=== PATIENT | male | born 1975 | race Two or more races ===

== ENCOUNTER 2017-02-28 08:46 | Inpatient (IN) | payer MEDICAID ==
[~2017-02-28] VITALS: Ht 162.6 cm; Wt 72.6 kg
[2017-02-28 10:02] LABS: Urine Blood TRACE /uL (Negative); Urine Color Orange (Yellow); Urine Glucose Normal (Normal); Urine Ketone 1+ (Negative); Urine Mucus MANY (None Seen); Urine Nitrite Negative (Negative); Urine RBC 10 /hpf (0 - 3); Urine Squamous Epithelial Cell FEW /hpf (<5); Urine pH 6.5 (5.0-8.0)
[2017-02-28] MEDS ORDERED: SODIUM CHLORIDE 0.9% 1,000 ML IV ONE (10:15)
[2017-02-28 10:16] LABS: Basophils # (auto) 0 uL; Basophils % (auto) 0.1 % (0.0-2.0); Eosinophils # (auto) 0 uL; Eosinophils % (auto) 0.4 % (0.0-7.0); Hematocrit 54.5 % (41.0-53.0); Hemoglobin 18.2 g/dL (13.5-17.5); Lymphocytes # (auto) 0.7 uL; Lymphocytes % (auto) 9.6 % (10.0-50.0); Mean Corpuscular Hgb Conc. 33.4 g/dL (32.0-36.0); Mean Corpuscular Volume 86.9 fL (80.0-100.0); Mean Platelet Volume 8.8 fL (6.9-10.8); Monocytes # (auto) 1.2 uL; Monocytes % (auto) 15.4 % (0.0-12.0); Neutrophils # (auto) 5.7 uL; Neutrophils % (auto) 74.5 % (37.0-80.0); Nucleated Red Blood Cells % 0.2 %; Platelet Count (auto) 289 10^3/uL (140-450); Red Cell Distribution Width 13.7 % (11.8-14.3); White Blood Cell 7.6 10^3/uL (4.4-10.8)
[2017-02-28 10:42] LABS: Albumin 4.4 g/dL (3.4-5.0); BUN/Creatinine Ratio 23.1; Bilirubin, Total 0.8 mg/dL (0.2-1.0); Calcium 9.8 mg/dL (8.5-10.1); Potassium 3.7 mmol/L (3.5-5.1); Total Protein 8.6 g/dL (6.4-8.2)
[2017-02-28] MEDS ORDERED: cefTRIAXone 1GM/50ML D5W 50 ML IV ONE ×2 (11:00→13:45)
[2017-02-28] MEDS ORDERED: metroNIDAZOLE 500MG/100ML 100 ML IV ONE (11:00)
[2017-02-28] MEDS ORDERED: GASTROGRAFIN 120 ML SOL ONE (11:09)
[2017-02-28 11:12] LABS: Urine Bilirubin Negative (Negative)
[2017-02-28] MEDS ORDERED: NITROGLYCERIN 0.4 MG SL TAB SL PRN (13:30)
[2017-02-28] MEDS ORDERED: MORPHINE SULF INJ 2 MG/ML SYRINGE 1ML IV PRN (13:30)
[2017-02-28] MEDS ORDERED: DEXTROSE (50%) 50ML SYRG IV PRN (13:45)
[2017-02-28] MEDS ORDERED: SOD CHL 0.45% WITH 20MEQ KCL 1,000 ML IV ONE (13:45)
[2017-02-28] MEDS ORDERED: FAMOTIDINE (10MG/ML) 2ML VL IV ONE (13:45)
[2017-02-28] MEDS ORDERED: PANTOPRAZOLE 40 MG/10 ML VIAL IV ONE (13:45)
[2017-02-28] MEDS: MORPHINE SULF INJ 2 MG/ML SYRINGE 1ML IV PRN ×2 (15:48→21:28)
[2017-02-28] MEDS: ONDANSETRON HCL 4 MG/2 ML VIAL IV PRN ×2 (15:48→21:29)
[2017-02-28] MEDS: InsuLIN REG 1unit/0.01ml Soln (100units/ml) SC SCH (17:06)
[2017-02-28] MEDS: ACCU-CHEK COMFORT CURVE STRIP VI SCH (17:06)
[2017-02-28 21:10] VITALS: BP 132/78
[2017-02-28] MEDS: metroNIDAZOLE 500MG/100ML 100 ML IV SCH (21:26)
[2017-02-28 21:49] VITALS: BP 144/85
[2017-03-01] MEDS: ACCU-CHEK COMFORT CURVE STRIP VI SCH ×4 (00:23→17:06)
[2017-03-01] MEDS: MORPHINE SULF INJ 2 MG/ML SYRINGE 1ML IV PRN (02:36)
[2017-03-01] MEDS: ONDANSETRON HCL 4 MG/2 ML VIAL IV PRN (02:37)
[2017-03-01 04:49] VITALS: BP 116/72
[2017-03-01] MEDS: metroNIDAZOLE 500MG/100ML 100 ML IV SCH ×3 (05:58→21:49)
[2017-03-01] MEDS: InsuLIN REG 1unit/0.01ml Soln (100units/ml) SC SCH ×4 (05:59→17:46)
[2017-03-01 06:32] LABS: Basophils # (auto) 0 uL; Basophils % (auto) 0.3 % (0.0-2.0); Eosinophils # (auto) 0.1 uL; Eosinophils % (auto) 1.3 % (0.0-7.0); Hematocrit 42.9 % (41.0-53.0); Hemoglobin 14.6 g/dL (13.5-17.5); Lymphocytes # (auto) 1.7 uL; Mean Corpuscular Hemoglobin 29.5 pg (28.0-32.0); Mean Corpuscular Hgb Conc. 34.1 g/dL (32.0-36.0); Mean Corpuscular Volume 86.5 fL (80.0-100.0); Mean Platelet Volume 8.2 fL (6.9-10.8); Monocytes # (auto) 0.9 uL; Neutrophils # (auto) 2.8 uL; Neutrophils % (auto) 51.4 % (37.0-80.0); Nucleated Red Blood Cells % 0.1 %; Platelet Count (auto) 225 10^3/uL (140-450); Red Cell Distribution Width 13.6 % (11.8-14.3); White Blood Cell 5.4 10^3/uL (4.4-10.8)
[2017-03-01 07:16] LABS: Albumin 2.6 g/dL (3.4-5.0); BUN/Creatinine Ratio 25.8; Bilirubin, Total 0.4 mg/dL (0.2-1.0); Calcium 6.7 mg/dL (8.5-10.1); Total Protein 5.3 g/dL (6.4-8.2)
[2017-03-01 07:22] LABS: Potassium 7.7 mmol/L (3.5-5.1)
[2017-03-01 08:39] LABS: Calcium 8.6 mg/dL (8.5-10.1)
[2017-03-01 09:00] VITALS: BP 121/80
[2017-03-01] MEDS: cefTRIAXone 1GM/50ML D5W 50 ML IV SCH (09:25)
[2017-03-01] MEDS: PANTOPRAZOLE 40 MG/10 ML VIAL IV SCH (09:26)
[2017-03-01] MEDS ORDERED: FAMOTIDINE (10MG/ML) 2ML VL IV SCH (10:00)
[2017-03-01 12:22] VITALS: BP 110/66
[2017-03-01 16:51] VITALS: BP 141/96
[2017-03-01 22:00] VITALS: BP 112/72
[2017-03-01] MEDS ORDERED: TEMAZEPAM 15 MG CAP PO ONE (22:30)
[2017-03-02 05:00] VITALS: BP 137/84
[2017-03-02] MEDS: metroNIDAZOLE 500MG/100ML 100 ML IV SCH ×3 (05:40→22:14)
[2017-03-02] MEDS: ACCU-CHEK COMFORT CURVE STRIP VI SCH ×3 (05:41→12:00)
[2017-03-02] MEDS: InsuLIN REG 1unit/0.01ml Soln (100units/ml) SC SCH ×3 (05:41→12:00)
[2017-03-02 06:09] LABS: Basophils # (auto) 0 uL; Basophils % (auto) 0.2 % (0.0-2.0); Eosinophils # (auto) 0.1 uL; Eosinophils % (auto) 1.7 % (0.0-7.0); Hematocrit 45.1 % (41.0-53.0); Hemoglobin 15.2 g/dL (13.5-17.5); Lymphocytes # (auto) 1.7 uL; Lymphocytes % (auto) 20.4 % (10.0-50.0); Mean Corpuscular Hemoglobin 29.4 pg (28.0-32.0); Mean Corpuscular Hgb Conc. 33.8 g/dL (32.0-36.0); Mean Platelet Volume 8.6 fL (6.9-10.8); Monocytes # (auto) 1.2 uL; Monocytes % (auto) 14.7 % (0.0-12.0); Neutrophils # (auto) 5.1 uL; Nucleated Red Blood Cells % 0.1 %; Platelet Count (auto) 249 10^3/uL (140-450); Red Cell Distribution Width 13.7 % (11.8-14.3); White Blood Cell 8.2 10^3/uL (4.4-10.8)
[2017-03-02 06:18] LABS: Albumin 3.3 g/dL (3.4-5.0); Calcium 8.9 mg/dL (8.5-10.1); Potassium 3.8 mmol/L (3.5-5.1)
[2017-03-02 06:20] LABS: BUN/Creatinine Ratio 15.2
[2017-03-02 06:22] LABS: Bilirubin, Total 0.4 mg/dL (0.2-1.0); Total Protein 6.7 g/dL (6.4-8.2)
[2017-03-02 06:26] LABS: INR 1.02 (0.9-1.15); Prothrombin Time 11.1 sec (9.37-12.3)
[2017-03-02 09:00] VITALS: BP 129/74
[2017-03-02] MEDS: cefTRIAXone 1GM/50ML D5W 50 ML IV SCH (09:46)
[2017-03-02] MEDS: PANTOPRAZOLE 40 MG/10 ML VIAL IV SCH (09:46)
[2017-03-02 13:00] VITALS: BP 136/78
[2017-03-02 17:00] VITALS: BP 128/83
[2017-03-02 22:00] VITALS: BP 133/83
[2017-03-02] MEDS ORDERED: TEMAZEPAM 15 MG CAP PO ONE (22:45)
[2017-03-03 05:00] VITALS: BP 135/89
[2017-03-03] MEDS: metroNIDAZOLE 500MG/100ML 100 ML IV SCH ×2 (06:02→13:58)
[2017-03-03 08:00] VITALS: BP 140/78
[2017-03-03] MEDS: PANTOPRAZOLE 40 MG/10 ML VIAL IV SCH (09:36)
[2017-03-03] MEDS: cefTRIAXone 1GM/50ML D5W 50 ML IV SCH (09:36)
[2017-03-03] MEDS: MUPIROCIN 2% OINT 22GM TOP SCH ×2 (11:21→21:35)
[2017-03-03 13:00] VITALS: BP 131/85
[2017-03-03] MEDS: SOD CHL 0.9%/ KCL 20MEQ 1,000 ML IV SCH (15:30)
[2017-03-03 17:00] VITALS: BP 131/85
[2017-03-03 21:32] VITALS: BP 138/84
[2017-03-04 05:00] VITALS: BP 113/72
[2017-03-04] MEDS: SOD CHL 0.9%/ KCL 20MEQ 1,000 ML IV SCH (05:05)
[2017-03-04 08:00] VITALS: BP 134/72
[2017-03-04 08:13] VITALS: BP 134/72
[2017-03-04 08:22] LABS: Basophils # (auto) 0 uL; Basophils % (auto) 0.1 % (0.0-2.0); Eosinophils # (auto) 0.1 uL; Eosinophils % (auto) 1.1 % (0.0-7.0); Hematocrit 45.8 % (41.0-53.0); Hemoglobin 15.5 g/dL (13.5-17.5); Lymphocytes # (auto) 2.1 uL; Lymphocytes % (auto) 22.2 % (10.0-50.0); Mean Corpuscular Hgb Conc. 33.8 g/dL (32.0-36.0); Mean Platelet Volume 8.3 fL (6.9-10.8); Monocytes # (auto) 0.9 uL; Monocytes % (auto) 9.9 % (0.0-12.0); Neutrophils # (auto) 6.3 uL; Neutrophils % (auto) 66.7 % (37.0-80.0); Platelet Count (auto) 283 10^3/uL (140-450); Red Cell Distribution Width 13.4 % (11.8-14.3); White Blood Cell 9.4 10^3/uL (4.4-10.8)
[2017-03-04 08:35] LABS: Calcium 8.9 mg/dL (8.5-10.1)
[2017-03-04] MEDS ORDERED: GASTROGRAFIN 30 ML SOL ONE (08:41)
[2017-03-04] MEDS: MUPIROCIN 2% OINT 22GM TOP SCH (10:00)
[2017-03-04] MEDS: PANTOPRAZOLE 40 MG/10 ML VIAL IV SCH (10:27)
== END 2017-03-04 13:48 | disposition home or self-care (01) | DRG 247 ==
LOC: ER 08:46 → TELE 08:47 → TELE-WESTW 20:25 → WEST WING 03-03 09:01
PROVIDERS: ADMIT Internal Medicine; ATTEND Internal Medicine
PROC: 0D9670Z Drainage of Stomach with Drainage Device, Via Natural or Artificial Opening (ICD-10-PCS; principal; 2017-02-28)
DX: K56.60 Unspecified intestinal obstruction (principal); E11.22 Type 2 diabetes mellitus with diabetic chronic kidney disease; N39.0 Urinary tract infection, site not specified; K52.9 Noninfective gastroenteritis and colitis, unspecified; E86.0 Dehydration; R63.0 Anorexia; N18.2 Chronic kidney disease, stage 2 (mild); Z68.27 Body mass index [BMI] 27.0-27.9, adult
CPT/HCPCS: 36415; 71010; 74000; 74176; 74250; 80048; 80053; 81001; 82270; 82962; 83036; 85025; 85610; 87040; 87045; 87493; 87899; 96361; 96365; 96367; 96375; C9113; J0696; J1815; J2405; J3490

== ENCOUNTER 2017-11-17 18:51 | Inpatient (IN) | payer SELFPAY ==
[~2017-11-17] VITALS: Ht 162.6 cm; Wt 70.7 kg
[2017-11-17] MEDS ORDERED: SODIUM CHLORIDE 0.9% 1,000 ML IV ONE (21:30)
[2017-11-17] MEDS ORDERED: ONDANSETRON HCL 4 MG/2 ML VIAL IV ONE (21:30)
[2017-11-17] MEDS ORDERED: NALBUPHINE HCL 10 MG/1ml INJECTION IV ONE (21:30)
[2017-11-17 21:39] LABS: Basophils # (auto) 0 uL; Basophils % (auto) 0.1 % (0.0-2.0); Eosinophils # (auto) 0 uL; Hematocrit 47.7 % (41.0-53.0); Hemoglobin 16.2 g/dL (13.5-17.5); Lymphocytes # (auto) 0.4 uL; Lymphocytes % (auto) 2.6 % (10.0-50.0); Mean Corpuscular Volume 85.5 fL (80.0-100.0); Monocytes # (auto) 1.5 uL; Monocytes % (auto) 10.6 % (0.0-12.0); Neutrophils # (auto) 11.9 uL; Neutrophils % (auto) 86.7 % (37.0-80.0); Nucleated Red Blood Cells % 0.1 %; Platelet Count (auto) 231 10^3/uL (140-450); Red Blood Cells 5.58 10^6/uL (4.5-5.90); Red Cell Distribution Width 13.9 % (11.8-14.3); White Blood Cell 13.7 10^3/uL (4.4-10.8)
[2017-11-17 21:58] LABS: Albumin 4.1 g/dL (3.4-5.0); Calcium 8.6 mg/dL (8.5-10.1); Chloride 109 mmol/L (98-107); Potassium 3.5 mmol/L (3.5-5.1); Sodium 141 mmol/L (136-145)
[2017-11-17 22:01] LABS: Alanine Aminotransferase 43 U/L (16-61); Amylase 46 U/L (25-115); Anion Gap 14 (5-15); Aspartate Aminotransferase 18 U/L (15-37); BUN/Creatinine Ratio 22.4; Blood Urea Nitrogen 28 mg/dL (7-18); Carbon Dioxide 18 mmol/L (21-32); GFR African American 81 mL/min; GFR Non-African American 67 mL/min; Glucose 136 mg/dL (74-106); Lipase 102 U/L (73-393); Magnesium 1.8 mg/dL (1.6-2.6)
[2017-11-17 22:06] LABS: INR 0.94 (0.9-1.15); Partial Thromboplastin Time 28.4 sec (23.78-33.04); Prothrombin Time 10.1 sec (9.27-12.13)
[2017-11-17 22:10] LABS: Alkaline Phosphatase 57 U/L (45-117); Bilirubin, Total 0.6 mg/dL (0.2-1.0); Total Protein 7.8 g/dL (6.4-8.2)
[2017-11-17] MEDS ORDERED: cefTRIAXone 1GM/10ml IVPUSH 10 ML IV ONE (23:45)
[2017-11-17] MEDS ORDERED: metroNIDAZOLE 500MG/100ML 100 ML IV ONE (23:45)
[2017-11-18] VITALS (7 sets, daily range): BP systolic 118–144; BP diastolic 73–96
[2017-11-18] MEDS ORDERED: PANTOPRAZOLE 40 MG/10 ML VIAL IV ONE
[2017-11-18] MEDS ORDERED: KETOROLAC TROMETH 30 MG/ML 1ML VIAL IV PRN
[2017-11-18] MEDS: ZOLPIDEM TARTRATE 5 MG TAB PO PRN ×2 (01:38→22:24)
[2017-11-18] MEDS: SODIUM CHLORIDE 0.9% 1,000 ML IV SCH ×3 (03:00→20:37)
[2017-11-18] MEDS: ONDANSETRON HCL 4 MG/2 ML VIAL IV PRN ×3 (04:09→22:24)
[2017-11-18] MEDS: metroNIDAZOLE 500MG/100ML 100 ML IV SCH ×3 (05:55→22:23)
[2017-11-18 08:37] LABS: INR 0.98 (0.9-1.15); Partial Thromboplastin Time 29.9 sec (23.78-33.04); Prothrombin Time 10.5 sec (9.27-12.13)
[2017-11-18 09:11] LABS: Albumin 3.3 g/dL (3.4-5.0); BUN/Creatinine Ratio 25.3; Calcium 8.1 mg/dL (8.5-10.1); Potassium 3.5 mmol/L (3.5-5.1)
[2017-11-18 09:14] LABS: Bilirubin, Total 0.5 mg/dL (0.2-1.0); Total Protein 6.7 g/dL (6.4-8.2)
[2017-11-18] MEDS: PANTOPRAZOLE 40 MG/10 ML VIAL IV SCH (09:23)
[2017-11-18] MEDS: cefTRIAXone 1GM/10ml IVPUSH 10 ML IV SCH (09:23)
[2017-11-18 10:22] LABS: Hematocrit 44.1 % (41.0-53.0); Hemoglobin 14.8 g/dL (13.5-17.5); Mean Corpuscular Hemoglobin 28.8 pg (28.0-32.0); Mean Corpuscular Hgb Conc. 33.6 g/dL (32.0-36.0); Mean Corpuscular Volume 85.5 fL (80.0-100.0); Platelet Count (auto) 221 10^3/uL (140-450); Red Blood Cells 5.15 10^6/uL (4.5-5.90); Red Cell Distribution Width 13.8 % (11.8-14.3); White Blood Cell 4.9 10^3/uL (4.4-10.8)
[2017-11-18 10:31] LABS: Band Neutrophils % (manual) 0; Basophils % (manual) 0 (0.0-2.0); Blast Cells 0; Eosinophils % (manual) 0 (0-7); Metamyelocytes % 0; Myelocytes % 0; Promyelocytes % 0; Reactive Lymphocytes 0
[2017-11-18 10:55] LABS: Urine Bacteria NONE SEEN /hpf (None Seen); Urine Blood Negative /uL (Negative); Urine Mucus FEW (None Seen); Urine Specific Gravity 1.032 (1.001-1.035); Urine WBC 2 /hpf (0 - 3)
[2017-11-18 11:54] LABS: Lymphocytes % (manual) 25 (10.0-50.0); Monocytes % (manual) 12 (0-12)
[2017-11-18] MEDS ORDERED: GASTROGRAFIN 120 ML SOL ONE (12:48)
[2017-11-19 04:57] VITALS: BP 111/65
[2017-11-19] MEDS: SODIUM CHLORIDE 0.9% 1,000 ML IV SCH ×3 (06:05→20:38)
[2017-11-19] MEDS: metroNIDAZOLE 500MG/100ML 100 ML IV SCH ×3 (06:05→21:42)
[2017-11-19 08:00] VITALS: BP 136/82
[2017-11-19 09:00] VITALS: BP 136/82
[2017-11-19] MEDS: PANTOPRAZOLE 40 MG/10 ML VIAL IV SCH (09:48)
[2017-11-19] MEDS: cefTRIAXone 1GM/10ml IVPUSH 10 ML IV SCH (09:48)
[2017-11-19 13:00] VITALS: BP 128/73
[2017-11-19 17:00] VITALS: BP 129/78
[2017-11-19] MEDS: ZOLPIDEM TARTRATE 5 MG TAB PO PRN (21:43)
[2017-11-20 05:19] VITALS: BP 118/71
[2017-11-20] MEDS: metroNIDAZOLE 500MG/100ML 100 ML IV SCH (05:44)
[2017-11-20 07:54] VITALS: BP 127/73
[2017-11-20 08:37] VITALS: BP 127/73
[2017-11-20] MEDS: PANTOPRAZOLE 40 MG/10 ML VIAL IV SCH (08:54)
[2017-11-20] MEDS: cefTRIAXone 1GM/10ml IVPUSH 10 ML IV SCH (08:54)
[2017-11-20 10:50] VITALS: BP 122/73
== END 2017-11-20 11:40 | disposition home or self-care (01) | DRG 390 ==
LOC: ER 18:51 → OVERFLOW 18:52 → CENTRAL 11-18 00:55
PROVIDERS: ADMIT Internal Medicine; ATTEND Internal Medicine
DX: K56.7 Ileus, unspecified (principal); F12.90 Cannabis use, unspecified, uncomplicated; E86.0 Dehydration; E11.9 Type 2 diabetes mellitus without complications; D72.829 Elevated white blood cell count, unspecified; K59.00 Constipation, unspecified
CPT/HCPCS: 36415; 74176; 74250; 80053; 81001; 82150; 83605; 83690; 83735; 84484; 85007; 85025; 85027; 85610; 85730; 87040; 87493; 93005; 94761; 96361; 96365; 96375; C9113; J1885; J2405; J3490

== ENCOUNTER 2018-06-05 15:25 | Inpatient (IN) | payer SELFPAY ==
[~2018-06-05] VITALS: Ht 162.6 cm; Wt 70.7 kg
[2018-06-05 17:13] LABS: Mean Corpuscular Hgb Conc. 33.4 g/dL (32.0-36.0)
[2018-06-05 17:15] LABS: Hematocrit 55.1 % (41.0-53.0); Hemoglobin 18.4 g/dL (13.5-17.5); Platelet Count (auto) 261 10^3/uL (140-450); Red Blood Cells 6.33 10^6/uL (4.5-5.90); Red Cell Distribution Width 14.2 % (11.8-14.3); White Blood Cell 18.3 10^3/uL (4.4-10.8)
[2018-06-05 17:32] LABS: Basophils % (manual) 0 (0.0-2.0); Blast Cells 0; Eosinophils % (manual) 0 (0-7); Metamyelocytes % 0; Promyelocytes % 0
[2018-06-05 17:42] LABS: Albumin 4.7 g/dL (3.4-5.0); Calcium 9.6 mg/dL (8.5-10.1)
[2018-06-05 17:46] LABS: BUN/Creatinine Ratio 22.4; Bilirubin, Total 0.6 mg/dL (0.2-1.0); Total Protein 8.8 g/dL (6.4-8.2)
[2018-06-05 18:00] LABS: Band Neutrophils % (manual) 18; Lymphocytes % (manual) 4 (10.0-50.0); Monocytes % (manual) 8 (0-12); Myelocytes % 1; Reactive Lymphocytes 1
[2018-06-05] MEDS ORDERED: SODIUM CHLORIDE 0.9% 1,000 ML IV ONE ×2 (19:41)
[2018-06-05] MEDS ORDERED: metroNIDAZOLE 500MG/100ML 100 ML IV ONE (19:45)
[2018-06-05] MEDS ORDERED: PIPERACILLIN-TAZOB 3.375GM 100 ML IV ONE (19:45)
[2018-06-05] MEDS: SODIUM CHLORIDE 0.9% 1,000 ML IV SCH (20:24)
[2018-06-05] MEDS ORDERED: ACETAMINOPHEN 325 MG TAB PO PRN (20:30)
[2018-06-05] MEDS ORDERED: HYDROcodone-ACET 5/325MG TAB PO PRN (20:30)
[2018-06-05] MEDS ORDERED: HYDROmorphone HCL 2 MG/ML VL IV ONE (22:00)
[2018-06-05] MEDS ORDERED: ONDANSETRON HCL 4 MG/2 ML VIAL IV ONE (22:00)
[2018-06-05] MEDS: metroNIDAZOLE 500MG/100ML 100 ML IV SCH (22:00)
[2018-06-06] MEDS: TEMAZEPAM 15 MG CAP PO PRN ×2 (00:20→21:30)
[2018-06-06 05:00] VITALS: BP 120/76
[2018-06-06 06:25] LABS: Basophils # (auto) 0 uL; Basophils % (auto) 0.1 % (0.0-2.0); Eosinophils # (auto) 0 uL; Eosinophils % (auto) 0.1 % (0.0-7.0); Hematocrit 47.5 % (41.0-53.0); Hemoglobin 15.9 g/dL (13.5-17.5); Lymphocytes # (auto) 1.1 uL; Lymphocytes % (auto) 13.1 % (10.0-50.0); Mean Corpuscular Hemoglobin 28.9 pg (28.0-32.0); Mean Corpuscular Hgb Conc. 33.4 g/dL (32.0-36.0); Mean Corpuscular Volume 86.5 fL (80.0-100.0); Monocytes # (auto) 1.4 uL; Monocytes % (auto) 17.3 % (0.0-12.0); Neutrophils # (auto) 5.7 uL; Neutrophils % (auto) 69.4 % (37.0-80.0); Nucleated Red Blood Cells % 0.1 %; Platelet Count (auto) 207 10^3/uL (140-450); White Blood Cell 8.1 10^3/uL (4.4-10.8)
[2018-06-06 06:36] LABS: Albumin 3.7 g/dL (3.4-5.0); BUN/Creatinine Ratio 23.5; Calcium 8.5 mg/dL (8.5-10.1); Potassium 3.7 mmol/L (3.5-5.1)
[2018-06-06 06:39] LABS: Bilirubin, Total 0.5 mg/dL (0.2-1.0); Total Protein 6.8 g/dL (6.4-8.2)
[2018-06-06] MEDS: metroNIDAZOLE 500MG/100ML 100 ML IV SCH ×3 (07:07→22:32)
[2018-06-06] MEDS: PANTOPRAZOLE 40 MG/10 ML VIAL IV SCH (07:07)
[2018-06-06 09:00] VITALS: BP 117/69
[2018-06-06] MEDS: cefTRIAXone 1GM/50ML D5W 50 ML IV SCH (09:21)
[2018-06-06] MEDS: ONDANSETRON HCL 4 MG/2 ML VIAL IV PRN ×2 (12:33→19:37)
[2018-06-06] MEDS: MORPHINE SULFATE 10 MG/ML INJ 1ML SDV IV PRN ×2 (12:50→19:37)
[2018-06-06 13:00] VITALS: BP 115/72
[2018-06-06] MEDS: SODIUM CHLORIDE 0.9% 1,000 ML IV SCH (14:09)
[2018-06-06 17:00] VITALS: BP 110/77
--- NOTE | 2018-06-06 19:15 | NUR ---
OPEN SHIFT NOTE PATIENT ALERT AND ORIENTED X4. ON ROOM AIR. POC DISCUSSED WITH PATIENT AND AND QUESTIONS ANSWERED. PATIENT STATES 7/10 OF PAIN AT THIS TIME. BED IS LOCKED IN LOWEST POSITION WITH SIDE RAILS UP X2. CALL LIGHT IS WITHIN REACH. WILL CONTINUE TO ROUND Q1HR AND PRN.
[2018-06-06 22:00] VITALS: BP 121/65
[2018-06-07] MEDS: MORPHINE SULFATE 10 MG/ML INJ 1ML SDV IV PRN ×2 (01:07→17:26)
[2018-06-07] MEDS: ONDANSETRON HCL 4 MG/2 ML VIAL IV PRN ×2 (01:07→17:26)
[2018-06-07 05:00] VITALS: BP 107/56
[2018-06-07] MEDS: metroNIDAZOLE 500MG/100ML 100 ML IV SCH ×3 (06:22→21:25)
[2018-06-07] MEDS: PANTOPRAZOLE 40 MG/10 ML VIAL IV SCH (06:23)
[2018-06-07 07:08] LABS: Calcium 7.9 mg/dL (8.5-10.1); Potassium 3.4 mmol/L (3.5-5.1)
[2018-06-07 07:09] LABS: BUN/Creatinine Ratio 14.6
[2018-06-07 08:00] VITALS: BP 110/63
[2018-06-07 09:00] VITALS: BP 110/63
--- NOTE | 2018-06-07 09:59 | NUR ---
CALL TO MICRO CALLED TO VERIFY THE STOOL SAMPLE ORDER, LAB VERIFIED THE STOOL ORDER INCLUDES TEST FOR C-DIFF
[2018-06-07] MEDS: cefTRIAXone 1GM/50ML D5W 50 ML IV SCH (10:05)
[2018-06-07] MEDS: SODIUM CHLORIDE 0.9% 1,000 ML IV SCH ×2 (10:05→22:39)
--- NOTE | 2018-06-07 10:14 | NUR ---
VISITORS AT BEDSIDE
[2018-06-07] MEDS ORDERED: POTASSIUM CHL 20 Meq TABLET PO ONE (11:15)
--- NOTE | 2018-06-07 12:04 | NUR ---
MD ROUNDS DR SORIA AT BEDSIDE TO DISCUSS POC WITH PT, PER MD PT MAY BE D/C'd UPON NEGATIVE C.DIFF RESULT, STILL PENDING WITH MICRO
[2018-06-07 13:00] VITALS: BP 122/67
[2018-06-07 17:00] VITALS: BP 128/79
--- NOTE | 2018-06-07 17:00 | NUR ---
Re: D/C Per MD, patient cannot be D/C'd due to a pending C-Diff sample, per Micro lab stool sample was sent yesterday. Patient is otherwise cleared to D/C, majority of d/c charting has been completed in anticipation of d/c
--- NOTE | 2018-06-07 19:05 | NUR ---
Opening Note Received report from day shift RN. Patient is awake, alert and oriented x4. No signs or symptoms of distress or shortness of breath at this time. Patient denies pain at this time. Reviewed plan of care, patient verbalized understanding. at bedside. Bed in low and locked position, call light within reach. Will continue to monitor Q1 hour and PRN.
[2018-06-07 22:00] VITALS: BP 124/61
[2018-06-07] MEDS: TEMAZEPAM 15 MG CAP PO PRN (22:16)
[2018-06-08] MEDS: ONDANSETRON HCL 4 MG/2 ML VIAL IV PRN (04:26)
[2018-06-08] MEDS: MORPHINE SULFATE 10 MG/ML INJ 1ML SDV IV PRN ×2 (04:26→05:18)
[2018-06-08 05:00] VITALS: BP 115/67
[2018-06-08] MEDS: metroNIDAZOLE 500MG/100ML 100 ML IV SCH (06:30)
[2018-06-08] MEDS: PANTOPRAZOLE 40 MG/10 ML VIAL IV SCH (06:30)
--- NOTE | 2018-06-08 07:10 | NUR ---
Closing Note Report given to day shift RN. Patient is resting in bed with eyes closed.No signs or symptoms of distress noted at this time
--- NOTE | 2018-06-08 07:20 | NUR ---
Opening Shift Note Assumed care of patient, patient alert and oriented x4. No S/S of distress/SOB or pain. Instructed on POC and to call for assistance PRN, will continue to monitor for changes Q1hr and PRN.
[2018-06-08 08:00] VITALS: BP 108/62
[2018-06-08 09:00] VITALS: BP 108/62
[2018-06-08] MEDS: cefTRIAXone 1GM/50ML D5W 50 ML IV SCH (09:50)
--- NOTE | 2018-06-08 11:00 | NUR ---
Dr. Alvarado at bedside.
[2018-06-08] MEDS: VANCOMYCIN HCL 125MG/5ML ORAL SOL PO SCH ×3 (12:00→23:40)
--- NOTE | 2018-06-08 12:00 | NUR ---
Dr. Alvarado paged regarding Stool sample final results, awaiting call.
[2018-06-08 13:00] VITALS: BP 118/73
--- NOTE | 2018-06-08 14:45 | NUR ---
IV removal Patient c/o pain at IV site,rates it a 4/10, slight swelling present. No redness present. IV DC'd with clean sterile technique, catheter fully intact. Pressure dressing applied to site. Patient tolerated well. Addendum: 06/08/18 at 1725 by Claudia Cortes RN 20 gauge IV placed in Right hand, patient tolerated well.
[2018-06-08] MEDS: SODIUM CHLORIDE 0.9% 1,000 ML IV SCH (15:04)
[2018-06-08 17:06] VITALS: BP 125/74
--- NOTE | 2018-06-08 18:55 | NUR ---
Patient sitting up having dinner, no c/o pain, no s/s of distress/sob noted or stated. Family member at bed side. Will endorse care to NOC RN
--- NOTE | 2018-06-08 19:25 | NUR ---
Opening Shift Note Assumed care of patient, patient alert and oriented x4. No S/S of distress/SOB or pain. Patient on C. Difficile precautions at this time. Bed in lowest locked position, side rails up x2, call light within reach. Instructed on POC and to call for assistance PRN, will continue to monitor for changes Q1hr and PRN.
[2018-06-08 21:44] VITALS: BP 112/70
[2018-06-08] MEDS: TEMAZEPAM 15 MG CAP PO PRN (22:06)
--- NOTE | 2018-06-09 04:20 | NUR ---
Bowel Movement Patient reporting 7/10 abdominal pain after bowel movement. Patient reports that stool is now "green, but soft and formed, not liquid." Will medicate for pain and prophylactically for nausea as ordered. Will continue to monitor.
[2018-06-09] MEDS: MORPHINE SULFATE 10 MG/ML INJ 1ML SDV IV PRN (04:23)
[2018-06-09] MEDS: ONDANSETRON HCL 4 MG/2 ML VIAL IV PRN (04:23)
[2018-06-09 05:00] VITALS: BP 123/84
[2018-06-09] MEDS: VANCOMYCIN HCL 125MG/5ML ORAL SOL PO SCH ×2 (05:46→11:42)
[2018-06-09 07:03] LABS: Potassium 3.4 mmol/L (3.5-5.1)
[2018-06-09 07:07] LABS: BUN/Creatinine Ratio 18.4; Calcium 8.3 mg/dL (8.5-10.1)
--- NOTE | 2018-06-09 07:30 | NUR ---
Closing Note Patient lying in bed, awake and alert. No s/s of distress. Care endorsed to kerry Flaherty RN.
[2018-06-09 08:46] VITALS: BP 107/80
[2018-06-09 13:03] VITALS: BP 125/84
[2018-06-09] MEDS ORDERED: VANC125PO PO (13:13)
[2018-06-09] MEDS ORDERED: POTASSIUM CHL 20 Meq TABLET PO ONE (13:30)
[2018-06-09 13:31] VITALS: BP 120/90
--- NOTE | 2018-06-09 13:35 | NUR ---
Discharge order noted. No prescription found in chart. Page placed to Dr. Alvarado.
--- NOTE | 2018-06-09 14:21 | NUR ---
No return call from Dr. Alvarado. Second page sent.
--- NOTE | 2018-06-09 15:00 | NUR ---
Prescription for Vancomycin received from Dr. Alvarado.
--- NOTE | 2018-06-09 16:37 | NUR ---
Received call from [facility] that Vanco 125 mg not available. Pharmacist requesting dosage be changed or new medication ordered. Had also received call from patient's that they are not able to find the vanco at any pharmacy. Page placed to Dr. Alvarado.
--- NOTE | 2018-06-09 16:47 | NUR ---
Return call from Dr. Alvarado. Order received for Vancomycin 250 mg PO QID for 2 weeks. Prescription called in to [facility] - [phone]. Spoke with pharmacist Ed.
== END 2018-06-09 15:28 | disposition home or self-care (01) | DRG 371 ==
LOC: ER 15:34 → OVERFLOW 20:26 → EAST 22:25
PROVIDERS: ADMIT Nurse Practitioner; ATTEND Internal Medicine
DX: A04.72 Enterocolitis due to Clostridium difficile, not specified as recurrent (principal); N17.0 Acute kidney failure with tubular necrosis; E86.0 Dehydration; F12.90 Cannabis use, unspecified, uncomplicated; Z83.3 Family history of diabetes mellitus
CPT/HCPCS: 36415; 71045; 74176; 80048; 80053; 83605; 85007; 85025; 85027; 85048; 87040; 87045; 87493; 87899; 96365; 96367; 96375; C9113; G0378; J0696; J2405; J2543; J3490

== ENCOUNTER 2018-09-19 20:19 | Inpatient (IN) | payer SELFPAY ==
[~2018-09-19] VITALS: Ht 162.6 cm; Wt 71.0 kg
[~2018-09-19 20:19] MED LIST: VANC125PO PO
[2018-09-19 22:19] LABS: Basophils # (auto) 0 uL; Eosinophils # (auto) 0 uL; Lymphocytes # (auto) 0.4 uL; Lymphocytes % (auto) 2.3 % (10.0-50.0); Neutrophils # (auto) 14.3 uL
[2018-09-19 22:21] LABS: Basophils % (auto) 0.2 % (0.0-2.0); Hematocrit 52.6 % (41.0-53.0); Hemoglobin 17.6 g/dL (13.5-17.5); Mean Corpuscular Hemoglobin 29.1 pg (28.0-32.0); Mean Corpuscular Hgb Conc. 33.4 g/dL (32.0-36.0); Mean Corpuscular Volume 87.2 fL (80.0-100.0); Monocytes % (auto) 6.3 % (0.0-12.0); Neutrophils % (auto) 91.2 % (37.0-80.0); Platelet Count (auto) 248 10^3/uL (140-450); Red Blood Cells 6.04 10^6/uL (4.5-5.90); Red Cell Distribution Width 14.1 % (11.8-14.3); White Blood Cell 15.7 10^3/uL (4.4-10.8)
[2018-09-19 22:31] LABS: Potassium 4.6 mmol/L (3.5-5.1)
[2018-09-19 22:35] LABS: Albumin 5.1 g/dL (3.4-5.0); Calcium 10.1 mg/dL (8.5-10.1); Magnesium 2.1 mg/dL (1.6-2.6)
[2018-09-19 22:40] LABS: BUN/Creatinine Ratio 19.2; Bilirubin, Total 0.4 mg/dL (0.2-1.0); Total Protein 8.8 g/dL (6.4-8.2)
[2018-09-20] MEDS ORDERED: cefTRIAXone 1GM/50ML D5W 50 ML IV ONE (06:15)
[2018-09-20] MEDS ORDERED: ONDANSETRON HCL 4 MG/2 ML VIAL IV ONE (06:15)
[2018-09-20] MEDS ORDERED: HYDROmorphone HCL 2 MG/ML VL IV ONE (06:15)
[2018-09-20] MEDS ORDERED: SODIUM CHLORIDE 0.9% 500 ML IV ONE (07:15)
[2018-09-20] MEDS ORDERED: metroNIDAZOLE 500MG/100ML 100 ML IV ONE (07:45)
[2018-09-20] MEDS ORDERED: HYDROcodone-ACET 5/325MG TAB PO PRN (07:45)
[2018-09-20] MEDS ORDERED: ACETAMINOPHEN 325 MG TAB PO PRN (07:45)
[2018-09-20] MEDS: SODIUM CHLORIDE 0.9% 1,000 ML IV SCH ×2 (08:00→21:05)
[2018-09-20 08:42] LABS: Urine Bacteria NONE SEEN /hpf (None Seen); Urine Blood Negative /uL (Negative); Urine Mucus FEW (None Seen); Urine Specific Gravity 1.034 (1.001-1.035); Urine WBC 1 /hpf (0 - 3)
[2018-09-20] MEDS: MORPHINE SULFATE 4 MG/ML SYR/VIAL IV PRN ×3 (09:56→22:07)
[2018-09-20] MEDS: PANTOPRAZOLE 40 MG/10 ML VIAL IV SCH (09:56)
[2018-09-20] MEDS: metroNIDAZOLE 500MG/100ML 100 ML IV SCH ×2 (14:18→22:07)
--- NOTE | 2018-09-20 17:10 | NUR ---
MS admit from ER VALORIE DIGGS admitted to tele/MS after SBAR received. Patient oriented to Valeria Mcgill, primary RN, unit, room, bed, and unit policies regarding patient care and visiting hours. Patient weighed by bedscale and encouraged to call if they need something. All questions and concerns addressed, patient verbalized understanding. Note:
[2018-09-20 17:31] VITALS: BP 119/79
[2018-09-20 18:10] VITALS: BP 119/79
--- NOTE | 2018-09-20 19:30 | NUR ---
Opening Shift Note Assumed care of patient, awake and alert x4. Family member noted at bedside. Patient denies pain at this time. Instructed on plan of care and to call for assistance as needed. Bed is locked in lowest position, side rails x 2 are up, and call light is within reach.
[2018-09-20 22:00] VITALS: BP 107/57
[2018-09-21] MEDS: TEMAZEPAM 15 MG CAP PO PRN ×2 (00:59→21:37)
[2018-09-21 05:00] VITALS: BP 115/62
[2018-09-21] MEDS: metroNIDAZOLE 500MG/100ML 100 ML IV SCH (05:03)
[2018-09-21 05:48] LABS: Basophils # (auto) 0 uL; Basophils % (auto) 0.3 % (0.0-2.0); Eosinophils # (auto) 0.1 uL; Eosinophils % (auto) 1.4 % (0.0-7.0); Hematocrit 41.3 % (41.0-53.0); Lymphocytes # (auto) 1.6 uL; Lymphocytes % (auto) 27.1 % (10.0-50.0); Mean Corpuscular Hemoglobin 29.4 pg (28.0-32.0); Mean Corpuscular Hgb Conc. 33.8 g/dL (32.0-36.0); Monocytes # (auto) 0.8 uL; Monocytes % (auto) 12.9 % (0.0-12.0); Neutrophils # (auto) 3.5 uL; Neutrophils % (auto) 58.3 % (37.0-80.0); Nucleated Red Blood Cells % 0.1 %; Platelet Count (auto) 182 10^3/uL (140-450); Red Blood Cells 4.75 10^6/uL (4.5-5.90); Red Cell Distribution Width 13.9 % (11.8-14.3)
[2018-09-21 06:07] LABS: Potassium 3.6 mmol/L (3.5-5.1)
[2018-09-21 06:10] LABS: Calcium 8.3 mg/dL (8.5-10.1)
[2018-09-21 06:17] LABS: BUN/Creatinine Ratio 18.4
[2018-09-21 08:00] VITALS: BP 122/69
[2018-09-21 09:00] VITALS: BP 122/69
[2018-09-21] MEDS: PANTOPRAZOLE 40 MG/10 ML VIAL IV SCH (10:07)
[2018-09-21] MEDS: SODIUM CHLORIDE 0.9% 1,000 ML IV SCH ×2 (10:07→23:45)
[2018-09-21 13:00] VITALS: BP 118/67
[2018-09-21] MEDS ORDERED: VANCOMYCIN HCL 125MG/5ML ORAL SOL PO ONE (13:00)
[2018-09-21] MEDS ORDERED: MORPHINE SULF INJ 2 MG/ML SYRINGE 1ML IV PRN (13:00)
[2018-09-21 17:13] VITALS: BP 110/60
[2018-09-21] MEDS: VANCOMYCIN HCL 125MG/5ML ORAL SOL PO SCH ×2 (17:54→21:37)
--- NOTE | 2018-09-21 19:35 | NUR ---
Opening Shift Note Assumed care of patient, awake and alert x4. Family member noted at the bedside. Patient denies pain/nausea at this time. Instructed on plan of care and to call for assistance as needed. Bed is locked in lowest position, side rails x 2 are up, and call light is within reach.
[2018-09-21 21:00] VITALS: BP 119/71
[2018-09-22 05:00] VITALS: BP 101/66
[2018-09-22] MEDS: VANCOMYCIN HCL 125MG/5ML ORAL SOL PO SCH ×2 (05:34→12:00)
[2018-09-22] MEDS: SODIUM CHLORIDE 0.9% 1,000 ML IV SCH (05:35)
[2018-09-22 06:08] LABS: Basophils # (auto) 0 uL; Basophils % (auto) 0.4 % (0.0-2.0); Eosinophils # (auto) 0.2 uL; Eosinophils % (auto) 2.6 % (0.0-7.0); Hematocrit 42.7 % (41.0-53.0); Hemoglobin 14.4 g/dL (13.5-17.5); Lymphocytes # (auto) 1.5 uL; Lymphocytes % (auto) 20.9 % (10.0-50.0); Mean Corpuscular Hemoglobin 29.3 pg (28.0-32.0); Mean Corpuscular Hgb Conc. 33.7 g/dL (32.0-36.0); Mean Corpuscular Volume 86.8 fL (80.0-100.0); Monocytes # (auto) 0.9 uL; Monocytes % (auto) 11.9 % (0.0-12.0); Neutrophils # (auto) 4.6 uL; Neutrophils % (auto) 64.2 % (37.0-80.0); Nucleated Red Blood Cells % 0.1 %; Platelet Count (auto) 202 10^3/uL (140-450); Red Blood Cells 4.92 10^6/uL (4.5-5.90); Red Cell Distribution Width 13.6 % (11.8-14.3); White Blood Cell 7.2 10^3/uL (4.4-10.8)
[2018-09-22 06:12] LABS: Calcium 8.6 mg/dL (8.5-10.1); Potassium 3.6 mmol/L (3.5-5.1)
[2018-09-22 06:15] LABS: BUN/Creatinine Ratio 18.3
--- NOTE | 2018-09-22 08:00 | NUR ---
Opening Shift Note Assumed care of patient, awake and alert. No S/S of distress/SOB or pain. Instructed on POC and to call for assist PRN, will continue to monitor for changes Q1hr and PRN.
[2018-09-22] MEDS: PANTOPRAZOLE 40 MG/10 ML VIAL IV SCH (09:06)
[2018-09-22 09:45] VITALS: BP 123/68
--- NOTE | 2018-09-22 13:57 | NUR ---
DISCHARGE PATIENT DISCHARGE DONE. ALL INSTRUCTIONS EXPLAINED TO PATIENT AND SPOUSE. ALL QUESTIONS ANSWERED. IV AND ID BANDS REMOVED. ALL BELONGINGS WENT WITH PATIENT. LEFT IN PERSONAL VEHICLE WITH SPOUSE.
== END 2018-09-22 14:10 | disposition home or self-care (01) | DRG 392 ==
LOC: ER 20:23 → OVERFLOW 09-20 07:33 → WEST WING 09-20 17:11
PROVIDERS: ADMIT Nurse Practitioner; ATTEND Internal Medicine
DX: K52.9 Noninfective gastroenteritis and colitis, unspecified (principal); F12.90 Cannabis use, unspecified, uncomplicated; K31.84 Gastroparesis; Z83.3 Family history of diabetes mellitus; Z80.3 Family history of malignant neoplasm of breast
CPT/HCPCS: 36415; 74176; 80048; 80053; 81001; 82150; 83690; 83735; 85025; 87045; 87493; 87899; 94761; 96361; 96365; 96375; C9113; G0378; J0696; J2405; J3490

== ENCOUNTER 2020-06-15 22:25 | Emergency (ER) | payer SELFPAY ==
[~2020-06-15] VITALS: Ht 165.1 cm; Wt 74.8 kg
[2020-06-16 00:17] LABS: Basophils # (auto) 0 10 ^3/uL (0-0.2); Basophils % (auto) 0.1 % (0.0-2.0); Eosinophils # (auto) 0 10 ^3/uL (0-0.8); Hematocrit 45.8 % (41.0-53.0); Hemoglobin 15.6 g/dL (13.5-17.5); Lymphocytes # (auto) 1.3 10 ^3/uL (0.4-5.4); Lymphocytes % (auto) 11.5 % (10.0-50.0); Mean Corpuscular Hemoglobin 29.6 pg (28.0-32.0); Mean Corpuscular Hgb Conc. 34.2 g/dL (32.0-36.0); Mean Corpuscular Volume 86.6 fL (80.0-100.0); Monocytes # (auto) 0.9 10 ^3/uL (0-1.3); Monocytes % (auto) 7.8 % (0.0-12.0); Neutrophils # (auto) 9.1 10 ^3/uL (1.6-8.6); Neutrophils % (auto) 80.6 % (37.0-80.0); Platelet Count (auto) 255 10^3/uL (140-450); Red Blood Cells 5.28 10^6/uL (4.5-5.90); Red Cell Distribution Width 13.7 % (11.8-14.3); White Blood Cell 11.3 10^3/uL (4.4-10.8)
[2020-06-16 01:02] LABS: Albumin 4.5 g/dL (3.4-5.0); Calcium 9.4 mg/dL (8.5-10.1)
[2020-06-16 01:17] LABS: BUN/Creatinine Ratio 20.2; Bilirubin, Total 0.6 mg/dL (0.2-1.0); Potassium 3.6 mmol/L (3.5-5.1); Total Protein 8.1 g/dL (6.4-8.2)
[2020-06-16 01:21] LABS: Urine Bacteria NONE SEEN /hpf (None Seen); Urine Blood Negative /uL (Negative); Urine Mucus MODERATE (None Seen); Urine Specific Gravity 1.041 (1.001-1.035); Urine WBC 1 /hpf (0 - 3)
[2020-06-16 01:45] VITALS: BP 138/79
[2020-06-16] MEDS ORDERED: IBUP800T24 PO (15:33)
[2020-06-16] MEDS ORDERED: FAMO20TA10 PO (15:33)
== END 2020-06-16 01:54 | disposition home or self-care (01) ==
LOC: ER 22:26
DX: K56.600 Partial intestinal obstruction, unspecified as to cause (principal)
CPT/HCPCS: 36415; 74176; 80053; 81001; 82150; 83605; 83690; 85025; 87040; 93005

== ENCOUNTER 2020-06-16 13:41 | Inpatient (IN) | payer SELFPAY ==
[~2020-06-16] VITALS: Ht 165.1 cm; Wt 68.9 kg
[2020-06-16 14:25] LABS: Basophils # (auto) 0 10 ^3/uL (0-0.2); Basophils % (auto) 0.2 % (0.0-2.0); Eosinophils # (auto) 0 10 ^3/uL (0-0.8); Hematocrit 48.8 % (41.0-53.0); Hemoglobin 17.2 g/dL (13.5-17.5); Lymphocytes # (auto) 0.9 10 ^3/uL (0.4-5.4); Lymphocytes % (auto) 5.7 % (10.0-50.0); Mean Corpuscular Hemoglobin 30.2 pg (28.0-32.0); Mean Corpuscular Hgb Conc. 35.2 g/dL (32.0-36.0); Mean Corpuscular Volume 85.8 fL (80.0-100.0); Monocytes # (auto) 1.4 10 ^3/uL (0-1.3); Monocytes % (auto) 9.3 % (0.0-12.0); Neutrophils % (auto) 84.8 % (37.0-80.0); Nucleated Red Blood Cells % 0.1 %; Platelet Count (auto) 290 10^3/uL (140-450); Red Cell Distribution Width 13.5 % (11.8-14.3); White Blood Cell 15.3 10^3/uL (4.4-10.8)
[2020-06-16 14:43] LABS: Albumin 4.7 g/dL (3.4-5.0); Calcium 9.7 mg/dL (8.5-10.1); Potassium 3.4 mmol/L (3.5-5.1)
[2020-06-16 14:48] LABS: BUN/Creatinine Ratio 21.4; Bilirubin, Total 0.7 mg/dL (0.2-1.0); Total Protein 8.6 g/dL (6.4-8.2)
[2020-06-16] MEDS ORDERED: SODIUM CHLORIDE 0.9% 1,000 ML IV ONE ×2 (15:00)
[2020-06-16] MEDS ORDERED: PIPERACILLIN-TAZOB 3.375GM 100 ML IV ONE (15:00)
[2020-06-16] MEDS ORDERED: metroNIDAZOLE 500MG/100ML 100 ML IV ONE (15:00)
[2020-06-16] MEDS ORDERED: LACTATED RINGER'S 1,000 ML IV ONE (15:15)
[2020-06-16] MEDS ORDERED: MORPHINE SULF INJ 2 MG/ML SYRINGE 1ML IV PRN ×2 (15:15→16:30)
[2020-06-16] MEDS ORDERED: NITROGLYCERIN 0.4 MG SL TAB SL PRN ×2 (15:15→16:30)
[2020-06-16] MEDS ORDERED: IBUP800T24 PO (15:33)
[2020-06-16] MEDS ORDERED: FAMO20TA10 PO (15:33)
[2020-06-16] MEDS ORDERED: HYDROmorphone HCL 2 MG/ML VL IV ONE (16:15)
[2020-06-16] MEDS ORDERED: GASTROGRAFIN 120 ML SOL ONE (16:19)
[2020-06-16] MEDS ORDERED: SUCRALFATE 1 GM/10 ML ORAL SUSP PO ONE (16:30)
[2020-06-16] MEDS ORDERED: ALUM & MAG HYDROX-SIMETH LIQ(MAALOX) 30 ML PO PRN (16:30)
[2020-06-16] MEDS ORDERED: LORazepam 0.5 MG TAB PO PRN (16:30)
[2020-06-16] MEDS ORDERED: ACETAMINOPHEN 325 MG TAB PO PRN (16:30)
[2020-06-16] MEDS ORDERED: PANTOPRAZOLE 40 MG/10 ML VIAL INJ IV ONE (16:30)
[2020-06-16] MEDS ORDERED: DOCUSATE SOD 100 MG CAP PO PRN (16:30)
[2020-06-16 16:49] LABS: Cholesterol 182 mg/dL (< 200)
[2020-06-16 16:53] LABS: HDL Cholesterol 49 mg/dL (40-59); LDL Cholesterol 115 mg/dL (< 100); Triglycerides 121 mg/dL (< 150)
[2020-06-16] MEDS: ONDANSETRON HCL 4 MG/2 ML VIAL IV PRN (18:16)
[2020-06-16] MEDS: SOD CHL 0.9%/ KCL 20MEQ 1,000 ML IV SCH (18:24)
[2020-06-16] MEDS: ENOXAPARIN SOD 40 MG/0.4 ML SYRINGE SC SCH (18:25)
[2020-06-16] MEDS: SUCRALFATE 1 GM/10 ML ORAL SUSP PO SCH ×2 (18:25→22:00)
[2020-06-16] MEDS: metroNIDAZOLE 500MG/100ML 100 ML IV SCH (22:00)
[2020-06-16] MEDS: MORPHINE SULF INJ 2 MG/ML SYRINGE 1ML IV PRN (22:52)
[2020-06-17] MEDS: SOD CHL 0.9%/ KCL 20MEQ 1,000 ML IV SCH ×3 (05:50→23:00)
[2020-06-17] MEDS: metroNIDAZOLE 500MG/100ML 100 ML IV SCH ×3 (06:00→21:43)
[2020-06-17] MEDS: SUCRALFATE 1 GM/10 ML ORAL SUSP PO SCH ×4 (06:51→21:44)
[2020-06-17] MEDS: MORPHINE SULF INJ 2 MG/ML SYRINGE 1ML IV PRN ×2 (06:53→22:41)
[2020-06-17 07:09] LABS: Basophils # (auto) 0 10 ^3/uL (0-0.2); Basophils % (auto) 0.2 % (0.0-2.0); Eosinophils # (auto) 0 10 ^3/uL (0-0.8); Eosinophils % (auto) 0.2 % (0.0-7.0); Hematocrit 43.7 % (41.0-53.0); Hemoglobin 15.1 g/dL (13.5-17.5); Lymphocytes # (auto) 1.3 10 ^3/uL (0.4-5.4); Mean Corpuscular Hemoglobin 29.8 pg (28.0-32.0); Mean Corpuscular Hgb Conc. 34.4 g/dL (32.0-36.0); Mean Corpuscular Volume 86.5 fL (80.0-100.0); Monocytes # (auto) 1.1 10 ^3/uL (0-1.3); Monocytes % (auto) 14.3 % (0.0-12.0); Neutrophils # (auto) 5.2 10 ^3/uL (1.6-8.6); Neutrophils % (auto) 68.3 % (37.0-80.0); Nucleated Red Blood Cells % 0.1 %; Platelet Count (auto) 235 10^3/uL (140-450); Red Blood Cells 5.06 10^6/uL (4.5-5.90); Red Cell Distribution Width 13.5 % (11.8-14.3); White Blood Cell 7.6 10^3/uL (4.4-10.8)
[2020-06-17 07:19] LABS: INR 0.99 (0.9-1.15); Partial Thromboplastin Time 30.4 sec (23.0-31.2)
[2020-06-17] MEDS: ONDANSETRON HCL 4 MG/2 ML VIAL IV PRN ×2 (07:36→22:48)
[2020-06-17 08:01] LABS: Potassium 3.7 mmol/L (3.5-5.1)
[2020-06-17 08:11] LABS: Albumin 4.1 g/dL (3.4-5.0); Bilirubin, Total 0.7 mg/dL (0.2-1.0); Calcium 9.2 mg/dL (8.5-10.1); Magnesium 2.2 mg/dL (1.6-2.6); Phosphorus 2.7 mg/dL (2.5-4.90); Total Protein 7.5 g/dL (6.4-8.2)
[2020-06-17] MEDS: PANTOPRAZOLE 40 MG/10 ML VIAL INJ IV SCH (09:53)
[2020-06-17] MEDS: ENOXAPARIN SOD 40 MG/0.4 ML SYRINGE SC SCH (09:56)
[2020-06-17] MEDS: cefTRIAXone 1GM/50ML D5W 50 ML IV SCH (09:56)
[2020-06-17 22:35] VITALS: BP 138/74
[2020-06-18 05:00] VITALS: BP 123/67
[2020-06-18] MEDS: metroNIDAZOLE 500MG/100ML 100 ML IV SCH ×2 (06:19→14:08)
[2020-06-18] MEDS: SUCRALFATE 1 GM/10 ML ORAL SUSP PO SCH ×2 (06:20→11:28)
[2020-06-18] MEDS: ONDANSETRON HCL 4 MG/2 ML VIAL IV PRN (06:28)
[2020-06-18] MEDS: MORPHINE SULF INJ 2 MG/ML SYRINGE 1ML IV PRN (06:29)
[2020-06-18 08:00] VITALS: BP 110/72
[2020-06-18 08:16] VITALS: BP 119/72
[2020-06-18] MEDS: ENOXAPARIN SOD 40 MG/0.4 ML SYRINGE SC SCH (09:39)
[2020-06-18] MEDS: cefTRIAXone 1GM/50ML D5W 50 ML IV SCH (09:39)
[2020-06-18] MEDS: PANTOPRAZOLE 40 MG/10 ML VIAL INJ IV SCH (10:00)
[2020-06-18] MEDS: SOD CHL 0.9%/ KCL 20MEQ 1,000 ML IV SCH (11:29)
[2020-06-18 13:24] VITALS: BP 119/72
== END 2020-06-18 16:20 | disposition home or self-care (01) | DRG 389 ==
LOC: ER 13:41 → TELE 13:42 → TELE-CENTR 06-17 22:22
PROVIDERS: ADMIT Hospitalist; ATTEND Family Medicine
DX: K56.600 Partial intestinal obstruction, unspecified as to cause (principal); N17.9 Acute kidney failure, unspecified; E87.1 Hypo-osmolality and hyponatremia; K56.0 Paralytic ileus; Z20.822 Contact with and (suspected) exposure to COVID-19; D72.829 Elevated white blood cell count, unspecified; E66.9 Obesity, unspecified; E87.6 Hypokalemia; F12.90 Cannabis use, unspecified, uncomplicated; K21.9 Gastro-esophageal reflux disease without esophagitis; K29.70 Gastritis, unspecified, without bleeding; Z83.3 Family history of diabetes mellitus; Z85.3 Personal history of malignant neoplasm of breast
CPT/HCPCS: 36415; 71045; 74176; 74250; 80053; 80061; 83036; 83605; 83690; 83735; 84100; 84484; 85025; 85610; 85730; 87040; 87426; 96365; G0378; J0696; J2405; J2543; J3490

== ENCOUNTER 2020-09-04 12:51 | Inpatient (IN) | payer SELFPAY ==
[~2020-09-04] VITALS: Ht 165.1 cm; Wt 65.8 kg
[2020-09-04] MEDS ORDERED: SODIUM CHLORIDE 0.9% 1,000 ML IV ONE ×2 (13:15→15:45)
[2020-09-04] MEDS ORDERED: MORPHINE SULFATE 4 MG/ML SYR/VIAL IV ONE (13:15)
[2020-09-04] MEDS ORDERED: SODIUM CHLORIDE 0.9% 1,000 ML IVB ONE (13:15)
[2020-09-04] MEDS ORDERED: PROCHLORPERAZINE EDISYLATE 5 MG/ML 2ML VIAL IV ONE (13:15)
[2020-09-04 13:43] LABS: Basophils # (auto) 0 10 ^3/uL (0-0.2); Basophils % (auto) 0.1 % (0.0-2.0); Eosinophils # (auto) 0 10 ^3/uL (0-0.8); Hematocrit 49.4 % (41.0-53.0); Hemoglobin 17.3 g/dL (13.5-17.5); Lymphocytes # (auto) 0.6 10 ^3/uL (0.4-5.4); Lymphocytes % (auto) 6.6 % (10.0-50.0); Mean Corpuscular Hemoglobin 30.2 pg (28.0-32.0); Mean Corpuscular Volume 86.2 fL (80.0-100.0); Monocytes # (auto) 1.3 10 ^3/uL (0-1.3); Monocytes % (auto) 13.6 % (0.0-12.0); Neutrophils # (auto) 7.5 10 ^3/uL (1.6-8.6); Neutrophils % (auto) 79.7 % (37.0-80.0); Nucleated Red Blood Cells % 0.1 %; Platelet Count (auto) 278 10^3/uL (140-450); Red Blood Cells 5.73 10^6/uL (4.5-5.90); White Blood Cell 9.4 10^3/uL (4.4-10.8)
[2020-09-04 13:52] LABS: Albumin 4.4 g/dL (3.4-5.0); BUN/Creatinine Ratio 24.8; Calcium 9.9 mg/dL (8.5-10.1); Potassium 3.7 mmol/L (3.5-5.1)
[2020-09-04 14:00] LABS: Bilirubin, Total 0.9 mg/dL (0.2-1.0)
[2020-09-04] MEDS ORDERED: NITROGLYCERIN 0.4 MG SL TAB SL PRN (15:45)
[2020-09-04] MEDS ORDERED: ACETAMINOPHEN 500 MG TAB PO PRN (15:45)
[2020-09-04] MEDS ORDERED: MORPHINE SULF INJ 2 MG/ML SYRINGE 1ML IV PRN (15:45)
[2020-09-04] MEDS ORDERED: DOCUSATE CALCIUM 240 MG CAP PO PRN (15:45)
[2020-09-04 17:10] LABS: Amylase 51 U/L (25-115); Lipase 73 U/L (73-393)
[2020-09-04] MEDS: SODIUM CHLORIDE 0.9% 1,000 ML IV SCH (17:25)
[2020-09-04 18:08] VITALS: BP 133/69
[2020-09-04] MEDS: ONDANSETRON HCL 4 MG/2 ML VIAL IV PRN (20:45)
[2020-09-04] MEDS: MORPHINE SULF INJ 2 MG/ML SYRINGE 1ML IV PRN (20:45)
[2020-09-04 23:53] LABS: Urine Bacteria FEW /hpf (None Seen); Urine Blood TRACE /uL (Negative); Urine Mucus FEW (None Seen); Urine Specific Gravity 1.022 (1.001-1.035); Urine WBC 2 /hpf (0 - 3)
[2020-09-05] MEDS: SODIUM CHLORIDE 0.9% 1,000 ML IV SCH ×4 (01:04→22:20)
[2020-09-05 05:47] LABS: Basophils # (auto) 0 10 ^3/uL (0-0.2); Basophils % (auto) 0.2 % (0.0-2.0); Eosinophils # (auto) 0.1 10 ^3/uL (0-0.8); Eosinophils % (auto) 1.8 % (0.0-7.0); Hematocrit 37.5 % (41.0-53.0); Hemoglobin 13.1 g/dL (13.5-17.5); Lymphocytes # (auto) 1.3 10 ^3/uL (0.4-5.4); Lymphocytes % (auto) 28.7 % (10.0-50.0); Mean Corpuscular Hemoglobin 30.2 pg (28.0-32.0); Mean Corpuscular Hgb Conc. 34.9 g/dL (32.0-36.0); Mean Corpuscular Volume 86.7 fL (80.0-100.0); Monocytes # (auto) 0.8 10 ^3/uL (0-1.3); Neutrophils # (auto) 2.3 10 ^3/uL (1.6-8.6); Neutrophils % (auto) 51.2 % (37.0-80.0); Nucleated Red Blood Cells % 0.1 %; Platelet Count (auto) 184 10^3/uL (140-450); Red Blood Cells 4.33 10^6/uL (4.5-5.90); Red Cell Distribution Width 13.7 % (11.8-14.3); White Blood Cell 4.5 10^3/uL (4.4-10.8)
[2020-09-05 06:01] LABS: Potassium 3.4 mmol/L (3.5-5.1)
[2020-09-05 06:05] LABS: Monocytes % (auto) 18.1 % (0.0-12.0)
[2020-09-05 06:06] LABS: Albumin 3.2 g/dL (3.4-5.0); BUN/Creatinine Ratio 21.7
[2020-09-05 06:09] LABS: Bilirubin, Total 0.6 mg/dL (0.2-1.0); Total Protein 5.8 g/dL (6.4-8.2)
[2020-09-05 07:19] LABS: INR 1.05 (0.9-1.15)
[2020-09-05 09:00] VITALS: BP 107/58
[2020-09-05] MEDS: ENOXAPARIN SOD 40 MG/0.4 ML SYRINGE SC SCH (09:26)
[2020-09-05] MEDS ORDERED: PANTOPRAZOLE 40 MG TAB PO SCH (10:00)
[2020-09-05] MEDS: ONDANSETRON HCL 4 MG/2 ML VIAL IV PRN ×2 (10:32→20:46)
[2020-09-05] MEDS: MORPHINE SULF INJ 2 MG/ML SYRINGE 1ML IV PRN ×2 (10:32→20:46)
[2020-09-05] MEDS ORDERED: POTASSIUM EFFERVESENT TAB 25 MEQ PO ONE (12:00)
[2020-09-05] MEDS ORDERED: cefTRIAXone 1GM/50ML D5W 50 ML IV ONE (12:00)
[2020-09-05 12:43] VITALS: BP 116/71
[2020-09-05] MEDS: Ensure HIGH Protein Chocolate 8oz Bottle PO SCH ×2 (12:55→18:08)
[2020-09-05] MEDS: metroNIDAZOLE 500 MG TAB PO SCH ×2 (13:05→22:18)
[2020-09-05 16:47] VITALS: BP 101/71
[2020-09-05] MEDS: SUCRALFATE 1 GM/10 ML ORAL SUSP PO SCH ×2 (18:07→22:18)
[2020-09-05] MEDS: VANCOMYCIN HCL 125MG/5ML ORAL SOL PO SCH ×2 (18:08→22:18)
[2020-09-05 21:29] VITALS: BP 111/67
[2020-09-05] MEDS: PANTOPRAZOLE 40 MG TAB PO SCH (22:19)
[2020-09-05] MEDS: LORazepam 0.5 MG TAB PO PRN (22:20)
[2020-09-06 05:04] VITALS: BP 98/63
[2020-09-06] MEDS: metroNIDAZOLE 500 MG TAB PO SCH ×3 (06:26→21:51)
[2020-09-06] MEDS: VANCOMYCIN HCL 125MG/5ML ORAL SOL PO SCH ×4 (06:26→21:50)
[2020-09-06] MEDS: SUCRALFATE 1 GM/10 ML ORAL SUSP PO SCH ×4 (06:27→21:51)
[2020-09-06 07:17] LABS: Basophils # (auto) 0 10 ^3/uL (0-0.2); Basophils % (auto) 0.3 % (0.0-2.0); Eosinophils # (auto) 0.1 10 ^3/uL (0-0.8); Eosinophils % (auto) 2.2 % (0.0-7.0); Hematocrit 37.7 % (41.0-53.0); Hemoglobin 13.2 g/dL (13.5-17.5); Lymphocytes # (auto) 1.5 10 ^3/uL (0.4-5.4); Lymphocytes % (auto) 34.3 % (10.0-50.0); Mean Corpuscular Hemoglobin 30.1 pg (28.0-32.0); Mean Corpuscular Volume 86.1 fL (80.0-100.0); Monocytes # (auto) 0.7 10 ^3/uL (0-1.3); Monocytes % (auto) 15.9 % (0.0-12.0); Neutrophils % (auto) 47.3 % (37.0-80.0); Nucleated Red Blood Cells % 0.1 %; Platelet Count (auto) 186 10^3/uL (140-450); Red Blood Cells 4.38 10^6/uL (4.5-5.90); Red Cell Distribution Width 13.3 % (11.8-14.3); White Blood Cell 4.2 10^3/uL (4.4-10.8)
[2020-09-06 07:30] LABS: Albumin 3.1 g/dL (3.4-5.0); Calcium 8.5 mg/dL (8.5-10.1); Potassium 3.4 mmol/L (3.5-5.1)
[2020-09-06 07:35] LABS: Bilirubin, Total 0.5 mg/dL (0.2-1.0); Total Protein 5.9 g/dL (6.4-8.2)
[2020-09-06] MEDS: Ensure HIGH Protein Chocolate 8oz Bottle PO SCH ×3 (08:00→17:49)
[2020-09-06 09:24] VITALS: BP 109/62
[2020-09-06] MEDS: PANTOPRAZOLE 40 MG TAB PO SCH ×2 (09:52→21:51)
[2020-09-06] MEDS: cefTRIAXone 1GM/50ML D5W 50 ML IV SCH (09:53)
[2020-09-06] MEDS: ENOXAPARIN SOD 40 MG/0.4 ML SYRINGE SC SCH (09:53)
[2020-09-06] MEDS: SODIUM CHLORIDE 0.9% 1,000 ML IV SCH ×2 (09:54→13:26)
[2020-09-06] MEDS ORDERED: POTASSIUM CHL 10 Meq TABLET PO ONE (10:30)
[2020-09-06 13:06] VITALS: BP 107/66
[2020-09-06 17:06] VITALS: BP 118/80
[2020-09-06] MEDS: FLORASTOR (S. BOULARDII) 250 MG CAP PO SCH (17:49)
[2020-09-06 21:48] VITALS: BP 124/77
[2020-09-06] MEDS: LORazepam 0.5 MG TAB PO PRN (21:51)
[2020-09-07] MEDS: SODIUM CHLORIDE 0.9% 1,000 ML IV SCH ×2 (01:51→09:06)
[2020-09-07 05:05] VITALS: BP 105/61
[2020-09-07] MEDS: VANCOMYCIN HCL 125MG/5ML ORAL SOL PO SCH ×2 (06:21→12:50)
[2020-09-07] MEDS: metroNIDAZOLE 500 MG TAB PO SCH (06:21)
[2020-09-07] MEDS: SUCRALFATE 1 GM/10 ML ORAL SUSP PO SCH (06:22)
[2020-09-07 07:25] LABS: Basophils # (auto) 0 10 ^3/uL (0-0.2); Basophils % (auto) 0.4 % (0.0-2.0); Eosinophils # (auto) 0.1 10 ^3/uL (0-0.8); Eosinophils % (auto) 1.6 % (0.0-7.0); Hematocrit 40.6 % (41.0-53.0); Hemoglobin 13.9 g/dL (13.5-17.5); Lymphocytes # (auto) 1.4 10 ^3/uL (0.4-5.4); Mean Corpuscular Hgb Conc. 34.3 g/dL (32.0-36.0); Mean Corpuscular Volume 87.4 fL (80.0-100.0); Monocytes # (auto) 0.6 10 ^3/uL (0-1.3); Monocytes % (auto) 11.4 % (0.0-12.0); Neutrophils # (auto) 3.5 10 ^3/uL (1.6-8.6); Neutrophils % (auto) 61.6 % (37.0-80.0); Platelet Count (auto) 211 10^3/uL (140-450); Red Blood Cells 4.64 10^6/uL (4.5-5.90); Red Cell Distribution Width 13.4 % (11.8-14.3); White Blood Cell 5.6 10^3/uL (4.4-10.8)
[2020-09-07 07:47] LABS: BUN/Creatinine Ratio 13.9; Calcium 8.4 mg/dL (8.5-10.1); Potassium 3.6 mmol/L (3.5-5.1)
[2020-09-07 08:00] VITALS: BP 125/75
[2020-09-07] MEDS: Ensure HIGH Protein Chocolate 8oz Bottle PO SCH ×2 (08:00→12:00)
[2020-09-07] MEDS: cefTRIAXone 1GM/50ML D5W 50 ML IV SCH (09:06)
[2020-09-07] MEDS: FLORASTOR (S. BOULARDII) 250 MG CAP PO SCH ×2 (09:06→12:50)
[2020-09-07] MEDS: PANTOPRAZOLE 40 MG TAB PO SCH (09:07)
[2020-09-07] MEDS: ENOXAPARIN SOD 40 MG/0.4 ML SYRINGE SC SCH (09:07)
[2020-09-07 12:00] VITALS: BP 125/78
[2020-09-07 12:16] VITALS: BP 125/78
[2020-09-19] MEDS ORDERED: VANCOMYCIN HCL 125MG/5ML ORAL SOL PO SCH (18:00)
[2020-09-26] MEDS ORDERED: VANCOMYCIN HCL 125MG/5ML ORAL SOL PO SCH (18:00)
[2020-10-03] MEDS ORDERED: VANCOMYCIN HCL 125MG/5ML ORAL SOL PO SCH (18:00)
== END 2020-09-07 13:59 | disposition home or self-care (01) | DRG 871 ==
LOC: ER 12:51 → CENTRAL 15:43
PROVIDERS: ADMIT Family Medicine; ATTEND Internal Medicine
DX: A41.9 Sepsis, unspecified organism (principal); N17.0 Acute kidney failure with tubular necrosis; A04.71 Enterocolitis due to Clostridium difficile, recurrent; E44.0 Moderate protein-calorie malnutrition; K56.0 Paralytic ileus; D63.8 Anemia in other chronic diseases classified elsewhere; E86.0 Dehydration; E87.6 Hypokalemia; F12.90 Cannabis use, unspecified, uncomplicated; K40.90 Unilateral inguinal hernia, without obstruction or gangrene, not specified as recurrent; N18.9 Chronic kidney disease, unspecified; Z80.3 Family history of malignant neoplasm of breast; Z82.0 Family history of epilepsy and other diseases of the nervous system; Z83.3 Family history of diabetes mellitus; Z20.822 Contact with and (suspected) exposure to COVID-19; R73.9 Hyperglycemia, unspecified
CPT/HCPCS: 36415; 71046; 74176; 80048; 80053; 81001; 82150; 82270; 83036; 83690; 84443; 85025; 85610; 87086; 87426; 87493; 93005; 96361; 96374; 96375; G0378; J0696; J2405